=== PATIENT | female | born 1960 | race Caucasian/White ===

== ENCOUNTER 2020-08-30 11:25 | Emergency (ER) | payer OTHER ==
[~2020-08-30] VITALS: Ht 165.1 cm; Wt 54.4 kg
[~2020-08-30 11:25] MED LIST: ASPIRIN EC81 MG PO; ATIVAN0.5 MG PO; FISH OIL 1,0001 EAC2 PO; ISOSORBIDE MONO30 MG PO; LIPITOR20 MG PO; LIPITOR40 MG PO; METOPROLOL SUCC25 MG PO; NITROGLYCERIN0.4 MG SL; PLAVIX75 MG PO; ZOFRAN ODT4 MG PO
--- OUTSIDE RECORDS SUMMARY | 2020-08-30 11:28 | XMS ---
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 Anival has no Care Guidelines for this patient. Christophe VISIT COUNT (12 MO.) [address] TOTAL 3 NOTE: Visits indicate total known visits. ED/C VISIT TRACKING (12 MO.) [facility] COMPLAINT: - ALCOHOL WITHDRAWL 08/28/2020 18:11 [facility] [place] TYPE: Emergency COMPLAINT: - VOMITING DIAGNOSES: - VOMITING 08/28/2020 16:41 [facility] [place] TYPE: Emergency DIAGNOSES: - Food poisoning - Nausea with vomiting, unspecified INPATIENT VISIT TRACKING (12 MO.) No inpatient visits to display in this time frame [id number]
[2020-08-30] MEDS ORDERED: ATIVAN1 MG PO (16:03)
== END 2020-08-30 16:30 | disposition home or self-care (01) ==
LOC: ED 11:25
DX: F10.239 Alcohol dependence with withdrawal, unspecified (principal); F17.200 Nicotine dependence, unspecified, uncomplicated; Z79.899 Other long term (current) drug therapy; Z79.82 Long term (current) use of aspirin
CPT/HCPCS: 80053; 96365; 99285-25; J3411; J7030

== ENCOUNTER → 2020-10-23 | Emergency (ER) | payer OTHER ==
[~2020-10-23] VITALS: Ht 165.1 cm; Wt 54.4 kg
[~2020-10-23] MED LIST changes: +ATIVAN1 MG PO; +DISULFIRAM250 MG PO; +LAMICTAL25 MG PO; +TRAMADOL HCL50 MG PO
--- OUTSIDE RECORDS SUMMARY | 2020-10-23 14:36 | XMS ---
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 Anival has no Care Guidelines for this patient. Christophe VISIT COUNT (12 MO.) 2 [place] [address] [address] TOTAL 4 NOTE: Visits indicate total known visits. ED/[facility] VISIT TRACKING (12 MO.) 10/23/2020 14:35 [facility] [place] TYPE: Emergency COMPLAINT: - INTOXICATED 08/30/2020 11:26 [facility] [place] TYPE: Emergency COMPLAINT: - ALCOHOL WITHDRAWL DIAGNOSES: - Other middle or intermediate school principal (current) drug therapy - Nicotine dependence, unspecified, uncomplicated - Alcohol dependence with withdrawal, unspecified - care home (current) use of aspirin [facility]28[facility]2020 18:11 [facility] [place] [facility] COMPLAINT: - VOMITING DIAGNOSES: - VOMITING 08/28/2020 16:41 [facility] [place] TYPE: Emergency DIAGNOSES: - Food poisoning - Nausea with vomiting, unspecified INPATIENT VISIT TRACKING (12 MO.) No inpatient visits to display in this time frame [email or web address]
--- NOTE | 2020-10-25 14:52 | EKG ---
[facility] [address] [facility] [place] [address] Signed Sinus tachycardia with premature atrial complexes Right atrial enlargement Borderline ECG No previous ECGs available Confirmed by BEN CURRAN DO ([id number]) on 10/25/2020 2:52:41 PM Electronically Signed By: BEN CURRAN DO 10/25/20 1452 PATIENT NAME: SAGE FRY Electrocardiogram DATE OF : 58 PHYSICIAN: BEN CURRAN DO REPORT #: [id number] REPORT IS CONFIDENTIAL AND NOT TO BE RELEASED WITHOUT AUTHORIZATION
== END | disposition home or self-care (01) ==
LOC: ED 14:34
DX: F10.129 Alcohol abuse with intoxication, unspecified (principal); Z20.822 Contact with and (suspected) exposure to COVID-19; Z79.899 Other long term (current) drug therapy; Y90.8 Blood alcohol level of 240 mg/100 ml or more
CPT/HCPCS: 80053; 85007; 85025; 93005; 93010; 96374; 96376; 99285-25; C9803; G0480; J2310; J7030; U0003

== ENCOUNTER 2020-10-26 12:48 | Emergency (ER) | payer OTHER ==
[~2020-10-26] VITALS: Ht 165.1 cm; Wt 54.4 kg
--- OUTSIDE RECORDS SUMMARY | 2020-10-26 12:50 | XMS ---
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 Christophe VISIT COUNT (12 MO.) [address] TOTAL 5 NOTE: Visits indicate total known visits. ED/C VISIT TRACKING (12 MO.) 10/26/2020 12:48 [facility] [place] TYPE: Emergency COMPLAINT: - FLANK PAIN 10/23/2020 14:35 [facility] [place] TYPE: Emergency COMPLAINT: - INTOXICATED 08/30/2020 11:26 [facility] [place] TYPE: Emergency COMPLAINT: - ALCOHOL WITHDRAWL DIAGNOSES: - Other alf (current) drug therapy - Nicotine dependence, unspecified, uncomplicated - Alcohol dependence with withdrawal, unspecified - correction (current) use of aspirin 08/28/2020 18:11 [facility] [place] TYPE: Emergency COMPLAINT: - VOMITING DIAGNOSES: - VOMITING 08/28/2020 16:41 [facility] [employer] [place] TYPE: Emergency DIAGNOSES: - Food poisoning - Nausea with vomiting, unspecified INPATIENT VISIT TRACKING (12 MO.) No inpatient visits to display in this time frame [id number]
== END 2020-10-26 14:20 | disposition home or self-care (01) ==
LOC: ED 12:48
DX: F10.129 Alcohol abuse with intoxication, unspecified (principal); Y90.8 Blood alcohol level of 240 mg/100 ml or more; Z79.899 Other long term (current) drug therapy
CPT/HCPCS: 99284